=== PATIENT | male | born 1995 | race Two or more races ===

== ENCOUNTER 2018-04-25 10:46 | Inpatient (IN) | payer MEDICAID ==
[~2018-04-25] VITALS: Ht 182.9 cm; Wt 95.3 kg
[2018-04-25 10:54] VITALS: Ht 182.9 cm; Wt 95.3 kg
[2018-04-25 11:30] LABS: BASOPHIL % 0.2 % (0-2); PLATELET COUNT 304 x10^3mcL (130-400); RED CELL DISTRIBUTION WIDTH 12.3 % (11.5-14.5)
[2018-04-25 11:48] LABS: CALCIUM 9.1 mg/dL (8.5-10.1); CARBON DIOXIDE 28.8 mmol/L (21-32); CHLORIDE SERUM 102 mmol/L (98-107); CREATININE SERUM 0.9 mg/dL (0.7-1.3); GFR1 > 60 mL/min; GLUCOSE SERUM 99 mg/dL (74-106); POTASSIUM SERUM 3.7 mmol/L (3.5-5.1); SODIUM SERUM 139 mmol/L (136-145)
[2018-04-25 11:52] LABS: ALBUMIN 4.3 g/dL (3.4-5.0); ALKALINE PHOSPHATASE 67 U/L (46-116); ALT/SGPT 23 U/L (16-63); AST/SGOT 35 U/L (15-37); BILIRUBIN TOTAL 1.1 mg/dL (0.20-1.00); TOTAL PROTEIN, SERUM 7.8 g/dL (6.4-8.2)
[2018-04-25 14:33] LABS: UA SPECIFIC GRAVITY 1.025 (1.005-1.035); microscopic required? YES; urine erythrocyte NEGATIVE (NEGATIVE)
[2018-04-25 14:47] LABS: AMPHETAMINE QUAL UR NONE DETECTED (See below)
[2018-04-25 22:47] LABS: FREE T4 1.36 ng/dL (0.76-1.46)
[2018-04-26 04:29] LABS: PHOSPHOROUS 3.9 mg/dL (2.5-4.9)
[2018-04-26 04:39] LABS: FREE T4 1.38 ng/dL (0.76-1.46); FREE THYROXINE INDEX 3.5 ug/dL (1.4-4.5); T4(THYROXINE) 9.2 ug/dL (4.7-13.3)
[2018-04-26 04:40] LABS: T3 TOTAL 1.08 ng/mL
[2018-04-26 04:44] VITALS: BP 114/63
[2018-04-26 08:24] VITALS: BP 106/58
[2018-04-26 16:14] VITALS: BP 106/58
[2018-04-26 16:16] VITALS: BP 115/72
== END 2018-04-26 16:54 | disposition other institution (70) | DRG 750 ==
LOC: ED 10:46 → MU 04-26 02:55
PROVIDERS: Emergency Medicine; Internal Medicine
DX: F20.9 Schizophrenia, unspecified (principal); N17.0 Acute kidney failure with tubular necrosis; G93.41 Metabolic encephalopathy; M62.82 Rhabdomyolysis; Z91.14 Patient's other noncompliance with medication regimen; T43.506A Underdosing of unspecified antipsychotics and neuroleptics, initial encounter; D72.829 Elevated white blood cell count, unspecified; Z68.23 Body mass index [BMI] 23.0-23.9, adult; Y92.009 Unspecified place in unspecified non-institutional (private) residence as the place of occurrence of the external cause
CPT/HCPCS: 84439; G0480; J7030